=== PATIENT | male | born 1980 | race Caucasian/White ===

== ENCOUNTER 2017-10-13 09:36 | Emergency (ER) | payer SELFPAY ==
[~2017-10-13] VITALS: Ht 170.2 cm; Wt 82.0 kg
[2017-10-13 09:39] VITALS: BP 200/116
== END 2017-10-13 12:18 | disposition home or self-care (01) ==
LOC: ER 09:36
DX: R42 Dizziness and giddiness (principal); I10 Essential (primary) hypertension; E11.9 Type 2 diabetes mellitus without complications; F41.9 Anxiety disorder, unspecified
CPT/HCPCS: 99284; Z7610